=== PATIENT | female | born 1985 | race Caucasian/White ===

== ENCOUNTER 2021-07-02 13:34 | Emergency (ER) | payer OTHER, SELFPAY ==
[2021-07-02] MEDS ORDERED: Ketorolac Tromethamine 30 MG/ML VIAL ONE (15:03)
== END 2021-07-02 15:05 | disposition home or self-care (01) ==
LOC: CSHERS 13:34
DX: S16.1XXA Strain of muscle, fascia and tendon at neck level, initial encounter (principal); S09.90XA Unspecified injury of head, initial encounter; V49.59XA Passenger injured in collision with other motor vehicles in traffic accident, initial encounter
CPT/HCPCS: 70450; 72125; J1885